=== PATIENT | female | born 1980 | race Caucasian/White ===

== ENCOUNTER 2018-02-14 17:00 | Emergency (ER) | payer MEDICAID ==
[2018-02-14 17:49] LABS: % BASOPHILS 0.9 % (0.0-2.0); % EOSINOPHILS 0.3 % (0.0-5.0); % LYMPHOCYTES 23.7 % (20.0-50.0); % MONOCYTES 10.5 % (2.0-10.0); % NEUTROPHILS 64.6 % (40.0-80.0); BASOPHILE ABSOLUTE 0.1 Th/cumm (0-0.2); HEMATOCRIT 34.5 % (41.0-60); HEMOGLOBIN 11.2 gm/dL (12-16); LYMPHOCYTE ABSOLUTE 1.9 Th/cmm (1.5-3.0); MEAN CELL VOLUME 82.7 fl (81-100); MEAN CORPUSCULAR HEMOGLOBIN 26.9 pg (27.0-31.0); MEAN CORPUSCULAR HGB CONC 32.5 pg (28.0-36.0); MEAN PLATELET VOLUME 7.3 fl; MONOCYTE ABSOLUTE 0.9 Th/cmm (0.3-1.0); NEUTROPHILE ABSOLUTE 5.2 Th/cmm (1.8-8.0); PLATELET COUNT 310 Th/cmm (150-400); RED BLOOD COUNT 4.17 Mil/cmm (3.80-5.10); RED CELL DISTRIBUTION WIDTH 12.7 % (11.5-20.0); WHITE BLOOD COUNT 8.1 Th/cmm (4.8-10.8)
[2018-02-14 18:04] LABS: ALB/GLOB RATIO 1.1 (1.0-1.8); ALBUMIN 3.8 gm/dL (3.7-5.3); ALKALINE PHOSPHATASE 100 U/L (34-104); ANION GAP 9.3 (7.0-16.0); BILIRUBIN,TOTAL 0.4 mg/dL (0.3-1.0); BUN - UREA NITROGEN 10 mg/dL (7-25); CALCIUM SERUM 8.7 mg/dL (8.6-10.3); CARBON DIOXIDE 30.4 mEq/L (21.0-31.0); CHLORIDE 95 mEq/L (98-107); CREATININE - SERUM 0.9 mg/dL (0.6-1.2); GFR AFRICAN-AMERICAN > 60.0 ml/min (>90); GFR NON AFRICAN-AMERICAN > 60.0 ml/min; GLUCOSE 96 mg/dL (70-105); PHOSPHOROUS 2.3 mg/dL (2.5-5.0); POTASSIUM SERUM 3.7 mEq/L (3.5-5.1); SGOT 12 U/L (13-39); SGPT/ALT 12 U/L (7-52); SODIUM SERUM 131 mEq/L (136-145); TOTAL PROTEIN,SERUM 7.4 gm/dL (6.0-8.3)
[2018-02-14 18:13] LABS: ESR SEDIMENTATION SED RATE 70 mm/hr (0-30)
[2018-02-14 19:36] LABS: URINE SOURCE RANDOM
[2018-02-14 19:41] LABS: URINE BILIRUBIN NEGATIVE (NEGATIVE); URINE BLOOD NEGATIVE (NEGATIVE); URINE GLUCOSE (UA) NEGATIVE (NEGATIVE); URINE KETONE NEGATIVE (NEGATIVE); URINE LEUKOCYTE ESTERASE NEGATIVE (NEGATIVE); URINE NITRATE NEGATIVE (NEGATIVE); URINE PH 7.5 (4.6 - 8.0); URINE PROTEIN 30 mg/dL (NEGATIVE)
[2018-02-14 19:42] LABS: URINE CLARITY CLEAR (CLEAR); URINE COLOR YELLOW; URINE MICROSCOPIC INDICATED? YES
[2018-02-14 19:43] LABS: URINE BACTERIA 1+ /hpf (NONE SEEN); URINE EPITHELIAL CELLS MODERATE /lpf (FEW); URINE RBC 0-2 /hpf (0-5)
--- NOTE | 2018-02-14 19:44 | ED Physician Chart ---
ED Chief Complaint/HPI - Patient Information Date Seen:: 02/14/18 Time Seen:: 17:16 Chief Complaint:: BUE abscesses History of Present Illness:: BUE abscesses s/p muscling and injecting heroin. LUE has been painful for the past week. Patient continued to muscle heroin after the left upper arm was painful. patient shares needles with her partner who is Hepatitis C positive. Allergies:: Allergies Allergy/AdvReac Type Severity Reaction Status Date / Time tetracycline Allergy Verified 02/14/18 17:16 Vitals:: Vital Signs - 8 hr 02/14/18 02/14/18 02/14/18 17:16 18:30 18:54 Temp 101.2 F 98.4 F 96.8 F HR 130 106 99 RR 22 18 16 BP 117/54 98/43 104/38 O2 Sat % 99 96 95 Historian:: Patient, Family Member Review:: Nurse's Note Reviewed ED Review of Systems - Review of Systems General/Constitutional: Fever, No chills, Weakness Skin: Other (R forearm abscess that is the size of a walnut (IV injection); L upper arm abscess that is bigger than an orange with surrounding cellulitis of 12 inches x 12 inches in size) Head: No headache, No light-headedness Eyes: No loss of vision, No pain, No diplopia ENT: No earache, No nasal drainage, No sore throat, No tinnitus Neck: No neck pain, No swelling, No thyromegaly, No stiffness, No mass noted Cardio Vascular: No chest pain, No palpitations, No PND, No orthopnea, No edema Pulmonary: No SOB, No cough, No sputum, No wheezing GI: No nausea, No vomiting, No diarrhea, No pain, No melena, No hematochezia, No constipation, No hematemesis G/U: No dysuria, No frequency, No hematuria Musculoskeletal: No bone or joint pain, No back pain, No muscle pain Endocrine: No polyuria, No polydipsia Psychiatric: No prior psych history, No depression, No anxiety, No suicidal ideation Hematopoietic: No bruising, No lymphadenopathy Allergic/Immuno: No urticaria, No angioedema Neurological: No syncope, No focal symptoms, No weakness, No paresthesia, No headache, No seizure, No dizziness, No confusion, No vertigo ED Past Medical History - Past Medical History Obtainable: Yes Past Medical History: No significant medical hx Family Medical History - Family Member Mother History Unknown: Yes ED Physical Exam - Physical Examination General/Constitutional: Awake Other Gen/Cons comments:: pale and chronically ill appearing. Head: Atraumatic Eyes: Lids, conjuctiva normal Skin: Nl inspection, No rash, No skin lesions, No ecchymosis, Well hydrated ENMT: External ears, nose nl Neck: Nontender, No nuchal rigidity Respiratory: Nl effort/Exclusion, Clear to Auscultation Cardio Vascular: RRR GI: No tenderness/rebounding/guarding, No organomegaly : No CVA tenderness Other Extremities comments:: R forearm abscess that is the size of a walnut (IV injection); L upper arm abscess that is bigger than an orange with surrounding cellulitis of 12 inches x 12 inches in size Neuro/Psych: Alert/oriented, Normal sensory exam ED Labs/Radiology/EKG Results - Lab Results Results: Laboratory Tests 02/14/18 02/14/18 02/14/18 17:40 17:40 17:40 WBC 8.1 RBC 4.17 Hgb 11.2 L Hct 34.5 L MCV 82.7 MCH 26.9 L MCHC Differential 32.5 RDW 12.7 Plt Count 310 MPV 7.3 Neutrophils % 64.6 Lymphocytes % 23.7 Monocytes % 10.5 H Eosinophils % 0.3 Basophils % 0.9 ESR 70 H Sodium 131 L Potassium 3.7 Chloride 95 L Carbon Dioxide 30.4 Anion Gap 9.3 BUN 10 Creatinine 0.9 Est GFR ( Amer) > 60.0 Est GFR (Non-Af Amer) > 60.0 BUN/Creatinine Ratio 11.1 Glucose 96 Calcium 8.7 Phosphorus 2.3 L Magnesium 2.0 Total Bilirubin 0.4 AST 12 L ALT 12 Alkaline Phosphatase 100 Creatine Kinase 95 Total Protein 7.4 Albumin 3.8 Globulin 3.6 Albumin/Globulin Ratio 1.1 POC Ur Test 02/14/18 18:26 WBC RBC Hgb Hct MCV MCH MCHC Differential RDW Plt Count MPV Neutrophils % Lymphocytes % Monocytes % Eosinophils % Basophils % ESR Sodium Potassium Chloride Carbon Dioxide Anion Gap BUN Creatinine Est GFR ( Amer) Est GFR (Non-Af Amer) BUN/Creatinine Ratio Glucose Calcium Phosphorus Magnesium Total Bilirubin AST ALT Alkaline Phosphatase Creatine Kinase Total Protein Albumin Globulin Albumin/Globulin Ratio POC Ur Test Negative ED Assessment - Assessment General Assessment: spoke with [facility], Dr. Plummer who said that he would call the surgeon clinical documentation improvement specialist to see if he felt comfortable performing the surgery which should be performed in the operating room. called at 6:45 p.m. Called Melva at the [facility] who told us to recall them back at 7:45 p.m. number is option 3. Assessment/Comments:: Sign out to Dr. Wallis to transfer the patient to an [facility] level of [facility] where the surgery should be performed in the operating room to I and D the left upper arm. ED Septic Shock - . Is Septic Shock (SBP<90, OR Lactate>4 mmol\L) present?: No - <6hrs of presentation: Vital Signs: Vital Signs - 8 hr 02/14/18 02/14/18 02/14/18 17:16 18:30 18:54 Temp 101.2 F 98.4 F 96.8 F HR 130 106 99 RR 22 18 16 BP 117/54 98/43 104/38 O2 Sat % 99 96 95 ED Reassessment (Disposition) - Reassessment Reassessment Condition:: Improved - Diagnosis Diagnosis:: LARGE LEFT UPPER ARM ABSCESS THAT NEEDS TO BE INCISED AND DRAINED IN THE OPERATING ROOM. R forearm walnut sized abscess (s/p IV injection). - Patient Disposition Discharge/Transfer:: Acute Care (other hosp) Condition at Disposition:: Stable, Improved
[2018-02-14 20:04] LABS: AMPHETAMINE URINE POSITIVE (NEGATIVE); BARBITURATES URINE NEGATIVE (NEGATIVE); BENZODIAZEPINES QUAL URINE NEGATIVE (NEGATIVE); CANNABINOID THC POSITIVE (NEGATIVE); COCAINE METABOLITE QUAL URINE NEGATIVE (NEGATIVE); METHADONE URINE NEGATIVE (NEGATIVE); METHAMPHETAMINES QUAL URINE POSITIVE (NEGATIVE); OPIATES (MORPHINE) QUAL. URINE POSITIVE (NEGATIVE); PHENCYCLIDINE (PCP) URINE NEGATIVE (NEGATIVE); TRICYCLICS (TCA) QUAL. URINE NEGATIVE (NEGATIVE)
[2018-02-14] MEDS ORDERED: Clindamycin 600mg/50mL 600 MG/50 ML BAG IV ONE (20:07)
[2018-02-14] MEDS ORDERED: Clindamycin 150 mg/mL 4mL Vial ONE (20:49)
[2018-02-14] MEDS ORDERED: Piperacillin Sodium/Tazobact 3.375 gm Vial IV ONE (20:49)
== END 2018-02-14 21:59 | disposition home or self-care (01) ==
LOC: ER 17:00
DX: L02.414 Cutaneous abscess of left upper limb (principal); L02.413 Cutaneous abscess of right upper limb; L03.114 Cellulitis of left upper limb; L03.113 Cellulitis of right upper limb; Z88.1 Allergy status to other antibiotic agents
CPT/HCPCS: 99284; 96365; 96367; 96368; 96375; 36415; 83605; 80307; 85025; 85652; 81001; 82550; 81025 ×2; 83735; 84100; 80053; 87040 ×2; J1885; J2543; J3370 ×2; J2930; X5958; Z7502